=== PATIENT | female | born 1935 | race Caucasian/White ===

== ENCOUNTER 2016-11-04 17:39 | Emergency (ER) | payer MEDICARE ==
[~2016-11-04] VITALS: Ht 165.1 cm; Wt 54.0 kg
--- NOTE | 2016-11-04 17:50 | NUR ---
BIB RA FROM HOME FOR HEADACHE, PATIENT IS VERBALLY RESPONSIVE, A/O X4, PLACED ON MONITOR, WILL CONTINUE TO MONITOR CLOSELY, MD AT BEDSIDE.
[2016-11-04] MEDS ORDERED: hydrALAZINE HCL IV 20 MG VIAL ONE ×2 (18:15→19:04)
[2016-11-04] MEDS ORDERED: ONDANSETRON HCL/PF 4 MG/2 ML VIAL ONE (18:16)
[2016-11-04] MEDS ORDERED: HYDROCODONE/APAP 5/325MG 1 EACH TABLET ONE (18:16)
[2016-11-04] MEDS ORDERED: HYDROCODONE/APAP 5/325MG 1 EACH TABLET PO ONE (18:30)
[2016-11-04] MEDS ORDERED: hydrALAZINE HCL IV 20 MG VIAL IV ONE ×2 (18:30→19:30)
[2016-11-04] MEDS ORDERED: ONDANSETRON 4 MG TAB.RAPDIS SL ONE (18:30)
[2016-11-04 18:34] LABS: BASOPHILS # (AUTO) 0.1 /CMM (0.0-0.2); BASOPHILS % (AUTO) 0.7 % (0.0-2.0); EOSINOPHILS # (AUTO) 0.1 /CMM (0.0-0.7); EOSINOPHILS % (AUTO) 1.9 % (0.0-6.0); HEMATOCRIT 41 % (33-45); HEMOGLOBIN 13.8 g/dL (11.5-14.8); LYMPHOCYTES # (AUTO) 1.9 /CMM (0.8-4.8); LYMPHOCYTES % (AUTO) 26.6 % (20.0-44.0); MEAN CORPUSCULAR HEMOGLOBIN 32 PG (26.0-33.0); MEAN CORPUSCULAR HGB CONC 33 g/dl (31.0-36.0); MEAN CORPUSCULAR VOLUME 96 fL (82-100); MONOCYTES # (AUTO) 0.5 /CMM (0.1-1.30); MONOCYTES % (AUTO) 7.3 % (2.0-12.0); NEUTROPHILS # (AUTO) 4.6 /CMM (1.8-8.9); NEUTROPHILS % (AUTO) 63.5 % (43.0-81.0); PLATELET COUNT (AUTO) 234 /CMM (150-450); RDW COEFFICIENT OF VARIATION 11.9 (11.5-15.0); WHITE BLOOD COUNT (AUTO) 7.2 K/uL (4.3-11.0)
[2016-11-04 18:44] LABS: CALCIUM, SERUM 9.4 mg/dL (8.5-10.1); CARBON DIOXIDE 29 mmol/L (21-32); CHLORIDE 99 mmol/L (98-107); CREATININE 0.9 mg/dL (0.6-1.3); GLUCOSE 117 mg/dL (74-106); POTASSIUM 3.9 mmol/L (3.5-5.1); SODIUM SERUM 137 mmol/L (136-145); UREA NITROGEN, BLOOD 21 mg/dL (7-18)
[2016-11-04 18:52] LABS: ALANINE AMINOTRANSFERASE 19 U/L (12-78); ALKALINE PHOSPHATASE 90 U/L (46-116); ASPARTATE AMINOTRANSFERASE 16 U/L (15-37); BILIRUBIN,TOTAL 0.4 mg/dL (0.2-1.0); TOTAL PROTEIN, SERUM 7.7 g/dL (6.4-8.2)
--- NOTE | 2016-11-04 18:57 | NUR ---
RECEIVED REPORT FROM LAKEISHA HWANG FOR ANGELIC.
[2016-11-04] MEDS ORDERED: LORAZEPAM INJ 2 MG/ML VIAL ONE (19:03)
[2016-11-04] MEDS ORDERED: ONDANSETRON HCL/PF - ER 4 MG/2 ML VIAL IV ONE (19:30)
[2016-11-04] MEDS ORDERED: LORAZEPAM INJ 2 MG/ML VIAL IV ONE (19:30)
--- NOTE | 2016-11-04 19:34 | NUR ---
GRAND JUAN A ROWLEY CELL [phone]
--- NOTE | 2016-11-04 19:41 | NUR ---
DR. VELASCO AT BEDSIDE SPEAKIN TO PT REGARDING POC/ RESULTS.
--- NOTE | 2016-11-04 19:56 | NUR ---
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
--- NOTE | 2016-11-04 20:30 | NUR ---
Edvin grandson at bed side.
[2016-11-04 20:55] VITALS: BP 148/72
--- NOTE | 2016-11-04 20:55 | NUR ---
Patient discharged to home in stable condition. Written and verbal after care instructions given. Patient verbalizes understanding of instruction.IV removed. Catheter intact and site benign. Pressure and 4x4 applied to site. No bleeding noted. pt ambulatory with a steady gait VITAL SIGNS WITHIN NORMAL LIMITS.
== END 2016-11-04 20:58 | disposition home or self-care (01) ==
LOC: ER 17:42
DX: R51 Headache (principal); I10 Essential (primary) hypertension; F41.9 Anxiety disorder, unspecified; F17.200 Nicotine dependence, unspecified, uncomplicated; E03.9 Hypothyroidism, unspecified; Z88.6 Allergy status to analgesic agent; Z88.8 Allergy status to other drugs, medicaments and biological substances
CPT/HCPCS: 36415; 70450-TC; 80053-TC; 85025-TC; 85652-TC; A4606; J0360; J2060; J2405; Z7610

== ENCOUNTER 2016-11-05 22:24 | Emergency (ER) | payer MEDICARE ==
[~2016-11-05] VITALS: Ht 167.6 cm; Wt 55.3 kg
--- NOTE | 2016-11-05 22:29 | NUR ---
PT A/OX4 BREATHING EFFORTLESSLY ON ROOM AIR, PT STATES SHE HAS BEEN HVAING A HEADACHE X 5 DAYS AND WAS HERE YESTERDAY AND IT IS WORST TODAY, PT IN GOWN ON MONITOR, MADE AWARE WILL CONTINUE TO MONITOR.
[2016-11-06 00:31] LABS: TROPONIN I 0.018 ng/mL (0.00-0.056)
[2016-11-06 00:36] LABS: THYROID STIMULATING HORMONE 1.179 uIU/mL (0.358-3.74)
--- NOTE | 2016-11-06 01:05 | NUR ---
Patient discharged to home in stable condition. Written and verbal after care instructions given. Patient verbalizes understanding of instruction. Ambulatory with a steady gait.
[2016-11-06 01:06] VITALS: BP 134/74
== END 2016-11-06 01:08 | disposition home or self-care (01) ==
LOC: ER 22:26
DX: R51 Headache (principal); F41.9 Anxiety disorder, unspecified; E03.9 Hypothyroidism, unspecified; F17.200 Nicotine dependence, unspecified, uncomplicated; Z88.6 Allergy status to analgesic agent
CPT/HCPCS: 36415; 84439-TC; 84443-TC; 84484-TC; A4606; Z7610

== ENCOUNTER 2024-01-07 08:41 | Inpatient (IN) | payer MEDICARE ==
[~2024-01-07] VITALS: Ht 162.6 cm; Wt 50.1 kg
[2024-01-07 09:25] LABS: BASOPHILS # (AUTO) 0.1 K/uL (0.0-0.2); BASOPHILS % (AUTO) 0.6 % (0.0-2.0); EOSINOPHILS % (AUTO) 0.5 % (0.0-6.0); HEMATOCRIT 42 % (33-45); LYMPHOCYTES # (AUTO) 1.3 K/uL (0.8-4.8); LYMPHOCYTES % (AUTO) 14.1 % (20.0-44.0); MEAN CORPUSCULAR HEMOGLOBIN 32 PG (26.0-33.0); MEAN CORPUSCULAR HGB CONC 33 g/dl (31.0-36.0); MEAN CORPUSCULAR VOLUME 96 fL (82-100); MONOCYTES # (AUTO) 0.7 K/uL (0.1-1.30); MONOCYTES % (AUTO) 7.7 % (2.0-12.0); NEUTROPHILS # (AUTO) 7.3 K/uL (1.8-8.9); NEUTROPHILS % (AUTO) 77.1 % (43.0-81.0); PLATELET COUNT (AUTO) 279 K/uL (150-450); RED BLOOD CELL COUNT(AUTO) 4.41 MIL/uL (4.0-5.2); RED CELL DISTRIBUTION WIDTH 13.1 % (11.5-15.0); WHITE BLOOD COUNT (AUTO) 9.4 K/uL (4.3-11.0)
[2024-01-07 09:47] LABS: CALCIUM, SERUM 9.1 mg/dL (8.5-10.1); CARBON DIOXIDE 26 mmol/L (21-32); CHLORIDE 98 mmol/L (98-107); CREATININE 0.6 mg/dL (0.6-1.3); GLUCOSE 111 mg/dL (74-106); POTASSIUM 4.2 mmol/L (3.5-5.1); SODIUM SERUM 132 mmol/L (136-145); UREA NITROGEN, BLOOD 13 mg/dL (7-18)
[2024-01-07 09:54] LABS: ALANINE AMINOTRANSFERASE 18 U/L (12-78); ALBUMIN 3.5 g/dL (3.4-5.0); ALKALINE PHOSPHATASE 79 U/L (46-116); ASPARTATE AMINOTRANSFERASE 20 U/L (15-37); BILIRUBIN,DIRECT 0.1 mg/dL (0.0-0.2); BILIRUBIN,TOTAL 0.8 mg/dL (0.2-1.0); TOTAL PROTEIN, SERUM 7.9 g/dL (6.4-8.2)
[2024-01-07 09:55] LABS: LACTIC ACID 1.3 mmol/L (0.4-2.0)
[2024-01-07] MEDS ORDERED: AMLO2.5T4 PO (10:12)
[2024-01-07] MEDS ORDERED: ASPI-1169 PO (10:12)
[2024-01-07] MEDS ORDERED: LEVO88TA5 PO (10:12)
[2024-01-07] MEDS: IV NS 0.9% 1,000 ML BAG IV ONE (11:10)
[2024-01-07] MEDS: LEVOFLOXACIN 750 MG /D5W 150ML 150 ML IV ONE (11:11)
[2024-01-07] MEDS: IV NS 0.9% 1,000 ML IV PRN (16:59)
[2024-01-07] MEDS ORDERED: ONDANSETRON HCL/PF 4 MG/2 ML VIAL IVP PRN (17:00)
[2024-01-07] MEDS ORDERED: Z GUARD REMEDY 4 OZ OINT TP PRN (17:00)
[2024-01-07] MEDS ORDERED: LEVOFLOXACIN 500 MG /D5W 100ML 500 MG in PREMIX 1 EA IV SCH (17:00)
[2024-01-07 20:00] VITALS: BP 153/100; TEMP 99; O2SAT 96
[2024-01-07] MEDS: ENOXAPARIN SODIUM 30 MG/0.3 ML DISP.SYRIN SQ SCH (21:46)
[2024-01-08 06:35] LABS: BASOPHILS # (AUTO) 0.1 K/uL (0.0-0.2); BASOPHILS % (AUTO) 1.4 % (0.0-2.0); EOSINOPHILS % (AUTO) 0.4 % (0.0-6.0); HEMATOCRIT 38 % (33-45); LYMPHOCYTES # (AUTO) 1.6 K/uL (0.8-4.8); LYMPHOCYTES % (AUTO) 22.6 % (20.0-44.0); MEAN CORPUSCULAR HEMOGLOBIN 33 PG (26.0-33.0); MEAN CORPUSCULAR HGB CONC 34 g/dl (31.0-36.0); MEAN CORPUSCULAR VOLUME 96 fL (82-100); MONOCYTES # (AUTO) 0.5 K/uL (0.1-1.30); MONOCYTES % (AUTO) 7.6 % (2.0-12.0); NEUTROPHILS # (AUTO) 4.7 K/uL (1.8-8.9); PLATELET COUNT (AUTO) 271 K/uL (150-450); RED BLOOD CELL COUNT(AUTO) 3.97 MIL/uL (4.0-5.2); RED CELL DISTRIBUTION WIDTH 12.9 % (11.5-15.0); WHITE BLOOD COUNT (AUTO) 6.9 K/uL (4.3-11.0)
[2024-01-08 07:03] LABS: CALCIUM, SERUM 8.9 mg/dL (8.5-10.1); CARBON DIOXIDE 31 mmol/L (21-32); CHLORIDE 99 mmol/L (98-107); CREATININE 0.5 mg/dL (0.6-1.3); GLUCOSE 102 mg/dL (74-106); MAGNESIUM 2.3 mg/dL (1.8-2.4); PHOSPHORUS 2.6 mg/dL (2.5-4.9); POTASSIUM 4.3 mmol/L (3.5-5.1); SODIUM SERUM 136 mmol/L (136-145); UREA NITROGEN, BLOOD 12 mg/dL (7-18)
[2024-01-08] MEDS: PANTOPRAZOLE 40 MG TABLET.DR PO SCH (07:38)
[2024-01-08] MEDS: LEVOTHYROXINE SODIUM 88 MCG TABLET PO SCH (07:39)
[2024-01-08 07:56] LABS: CHOLESTEROL 178 mg/dL (<200); HDL CHOLESTEROL 59 mg/dL (40-60); LDL 99 mg/dL (0-99); TRIGLYCERIDES 99 mg/dL (30-150)
[2024-01-08 08:00] VITALS: BP 132/100; TEMP 98.4; O2SAT 96
[2024-01-08] MEDS: ASPIRIN 81 MG TAB.CHEW PO SCH (08:26)
[2024-01-08] MEDS: AMLODIPINE BESYLATE 2.5 MG TABLET PO SCH (08:27)
[2024-01-08] MEDS: ATORVASTATIN 10 MG TABLET PO SCH (12:35)
[2024-01-08 16:00] VITALS: BP 144/68; TEMP 99.9; O2SAT 94
[2024-01-08 19:12] LABS: THYROID STIMULATING HORMONE 0.06 uIU/mL (0.358-3.74)
[2024-01-08 20:36] VITALS: BP 128/78; TEMP 100.8; O2SAT 96
[2024-01-08] MEDS: ACETAMINOPHEN 325 MG TABLET PO PRN (20:48)
[2024-01-08 20:51] VITALS: O2SAT 96
[2024-01-09 08:00] VITALS: BP 126/81; TEMP 99.1; O2SAT 97
[2024-01-09] MEDS: LEVOFLOXACIN 750 MG /D5W 150ML 750 MG in PREMIX 1 EA IV SCH (09:06)
[2024-01-09] MEDS: AZITHROMYCIN 250 MG TABLET PO SCH (11:37)
[2024-01-09] MEDS: CEFTRIAXONE 2 G in IV D5W 100 ML IV ONE (11:50)
[2024-01-09] MEDS ORDERED: CEFTRIAXONE 1GM BAG (ER ONLY) 1 GM/50 ML PIGGYBACK IV ONE (12:00)
[2024-01-09] MEDS: ENSURE ENLIVE 237 ML LIQUID (VANILLA) PO SCH (12:12)
[2024-01-09] MEDS: MAG HYDROX/AL HYDROX/SIMETH 30 ML UDC PO PRN (15:36)
[2024-01-09 16:00] VITALS: BP 143/83; TEMP 100.8; O2SAT 92
[2024-01-09 20:00] VITALS: BP 140/74; TEMP 97.5; O2SAT 94
[2024-01-09 20:20] VITALS: BP 140/74; TEMP 97.5; O2SAT 94
[2024-01-10 06:12] LABS: FOLIC ACID > 20.0 ng/mL (>3.0)
[2024-01-10 08:00] VITALS: BP 149/89; TEMP 98.4; O2SAT 100
[2024-01-10] MEDS: LEVOTHYROXINE SODIUM 88 MCG TABLET PO SCH (08:21)
[2024-01-10] MEDS: ENSURE ENLIVE CHOC 237 ML CAN PO SCH (11:51)
[2024-01-10] MEDS: CEFTRIAXONE 2 G in IV D5W 100 ML IV SCH (14:02)
[2024-01-10 16:00] VITALS: BP 156/92; TEMP 100.2; O2SAT 92
[2024-01-10 20:44] VITALS: BP 162/76; TEMP 99.3; O2SAT 92
[2024-01-10 22:30] VITALS: BP 150/85; O2SAT 96
[2024-01-11 08:00] VITALS: BP 140/76; TEMP 97.7; O2SAT 94
[2024-01-11 16:00] VITALS: BP 140/75; TEMP 99.3; O2SAT 93
[2024-01-11 20:00] VITALS: BP 150/75; TEMP 97.5; O2SAT 94
[2024-01-12 07:00] VITALS: BP 124/106; TEMP 97.5; O2SAT 96
[2024-01-12 08:45] VITALS: O2SAT 97
[2024-01-12 16:00] VITALS: BP 140/75; TEMP 97.3; O2SAT 97
[2024-01-12 20:00] VITALS: BP_SYST 131; BP_SYST 151; BP_DIAS 76; BP_DIAS 90; TEMP 97.3; TEMP 97.5; O2SAT 94; O2SAT 95
[2024-01-12 23:22] VITALS: BP 151/90; TEMP 97.3; O2SAT 95
[2024-01-13 08:00] VITALS: BP 145/84; TEMP 98.6; O2SAT 96
[2024-01-13 16:00] VITALS: BP 135/71; TEMP 99; O2SAT 95
[2024-01-13 20:41] VITALS: BP 145/81; TEMP 97.7; O2SAT 92
[2024-01-14 02:04] VITALS: BP 145/81; TEMP 97.7; O2SAT 92
[2024-01-14] MEDS ORDERED: TRAMADOL HCL 50 MG TABLET PO PRN (03:00)
[2024-01-14] MEDS: HYDROCODONE/APAP 5/325MG TABLET PO PRN (03:25)
[2024-01-14] MEDS: MORPHINE SULFATE INJ 2 MG/ML DISP.SYRIN IV PRN (06:22)
[2024-01-14 08:00] VITALS: BP 146/80; TEMP 99; O2SAT 94
[2024-01-14] MEDS: MAGNESIUM HYDROXIDE 30 ML UDC PO PRN (08:42)
[2024-01-14 09:08] LABS: METHYLMALONIC ACID 120 nmol/L (0-378)
[2024-01-14 10:24] LABS: BASOPHILS # (AUTO) 0.1 K/uL (0.0-0.2); BASOPHILS % (AUTO) 1.4 % (0.0-2.0); EOSINOPHILS % (AUTO) 0.1 % (0.0-6.0); HEMATOCRIT 45 % (33-45); HEMOGLOBIN 15.1 g/dL (11.5-14.8); LYMPHOCYTES # (AUTO) 0.2 K/uL (0.8-4.8); LYMPHOCYTES % (AUTO) 1.8 % (20.0-44.0); MEAN CORPUSCULAR HEMOGLOBIN 32 PG (26.0-33.0); MEAN CORPUSCULAR HGB CONC 33 g/dl (31.0-36.0); MEAN CORPUSCULAR VOLUME 96 fL (82-100); MONOCYTES # (AUTO) 0.3 K/uL (0.1-1.30); MONOCYTES % (AUTO) 3.1 % (2.0-12.0); NEUTROPHILS # (AUTO) 10.1 K/uL (1.8-8.9); NEUTROPHILS % (AUTO) 93.6 % (43.0-81.0); PLATELET COUNT (AUTO) 483 K/uL (150-450); RED BLOOD CELL COUNT(AUTO) 4.71 MIL/uL (4.0-5.2); RED CELL DISTRIBUTION WIDTH 13.1 % (11.5-15.0); WHITE BLOOD COUNT (AUTO) 10.8 K/uL (4.3-11.0)
[2024-01-14 10:42] LABS: ALANINE AMINOTRANSFERASE 29 U/L (12-78); ALBUMIN 2.9 g/dL (3.4-5.0); ALKALINE PHOSPHATASE 67 U/L (46-116); ASPARTATE AMINOTRANSFERASE 24 U/L (15-37); BILIRUBIN,TOTAL 0.9 mg/dL (0.2-1.0); CALCIUM, SERUM 8.8 mg/dL (8.5-10.1); CARBON DIOXIDE 27 mmol/L (21-32); CHLORIDE 97 mmol/L (98-107); CREATININE 0.6 mg/dL (0.6-1.3); GLUCOSE 117 mg/dL (74-106); LACTIC ACID 1.5 mmol/L (0.4-2.0); MAGNESIUM 2.3 mg/dL (1.8-2.4); PHOSPHORUS 3.9 mg/dL (2.5-4.9); POTASSIUM 3.8 mmol/L (3.5-5.1); SODIUM SERUM 134 mmol/L (136-145); TOTAL PROTEIN, SERUM 6.4 g/dL (6.4-8.2); UREA NITROGEN, BLOOD 33 mg/dL (7-18)
[2024-01-14 11:06] LABS: ANISOCYTOSIS 1+; BAND % (MANUAL) 3 % (0.0-5.0); BASOPHILS % (MANUAL) 0 % (0.0-2.0); EOSINOPHILS % (MANUAL) 0 % (0-4); LYMPHOCYTES % (MANUAL) 3 % (16-48); MONOCYTES % (MANUAL) 5 % (0-11.0); NEUTROPHILS % (MANUAL) 89 (42-76); PLATELET ESTIMATE ADEQUATE
[2024-01-14 16:00] VITALS: BP 143/91; TEMP 99.1; O2SAT 99
[2024-01-14 20:00] VITALS: BP 129/87; TEMP 98.1; O2SAT 92
[2024-01-15 08:00] VITALS: BP 148/85; TEMP 98.1; O2SAT 94
[2024-01-15 16:09] VITALS: BP 137/76; TEMP 98.1; O2SAT 92
[2024-01-15 20:00] VITALS: BP 142/80; TEMP 98.6; O2SAT 92
[2024-01-16 07:30] VITALS: BP 153/82; TEMP 97.9; O2SAT 94
[2024-01-16 16:00] VITALS: BP 136/78; TEMP 98.3; O2SAT 96
[2024-01-16 20:00] VITALS: BP 147/68; TEMP 98.2; O2SAT 94
[2024-01-17 06:33] LABS: BASOPHILS # (AUTO) 0.1 K/uL (0.0-0.2); BASOPHILS % (AUTO) 0.9 % (0.0-2.0); HEMATOCRIT 38 % (33-45); HEMOGLOBIN 12.9 g/dL (11.5-14.8); LYMPHOCYTES # (AUTO) 0.7 K/uL (0.8-4.8); LYMPHOCYTES % (AUTO) 5.5 % (20.0-44.0); MEAN CORPUSCULAR HEMOGLOBIN 33 PG (26.0-33.0); MEAN CORPUSCULAR HGB CONC 34 g/dl (31.0-36.0); MEAN CORPUSCULAR VOLUME 97 fL (82-100); MONOCYTES # (AUTO) 0.8 K/uL (0.1-1.30); MONOCYTES % (AUTO) 6.5 % (2.0-12.0); NEUTROPHILS # (AUTO) 10.6 K/uL (1.8-8.9); NEUTROPHILS % (AUTO) 87.1 % (43.0-81.0); PLATELET COUNT (AUTO) 469 K/uL (150-450); RED BLOOD CELL COUNT(AUTO) 3.94 MIL/uL (4.0-5.2); RED CELL DISTRIBUTION WIDTH 12.9 % (11.5-15.0); WHITE BLOOD COUNT (AUTO) 12.1 K/uL (4.3-11.0)
[2024-01-17 06:54] LABS: ALANINE AMINOTRANSFERASE 19 U/L (12-78); ALBUMIN 2.5 g/dL (3.4-5.0); ALKALINE PHOSPHATASE 66 U/L (46-116); ASPARTATE AMINOTRANSFERASE 18 U/L (15-37); BILIRUBIN,TOTAL 0.6 mg/dL (0.2-1.0); CALCIUM, SERUM 8.7 mg/dL (8.5-10.1); CARBON DIOXIDE 35 mmol/L (21-32); CHLORIDE 101 mmol/L (98-107); CREATININE 0.5 mg/dL (0.6-1.3); GLUCOSE 100 mg/dL (74-106); MAGNESIUM 2.6 mg/dL (1.8-2.4); PHOSPHORUS 2.4 mg/dL (2.5-4.9); POTASSIUM 3.5 mmol/L (3.5-5.1); SODIUM SERUM 142 mmol/L (136-145); TOTAL PROTEIN, SERUM 6.3 g/dL (6.4-8.2); UREA NITROGEN, BLOOD 27 mg/dL (7-18)
[2024-01-17 08:00] VITALS: BP 145/78; TEMP 98.8; O2SAT 96
[2024-01-17] MEDS ORDERED: DIATR MEGLU/DIATRIZOATE SODIUM 120 ML BOTTLE (GASTROGRAPHIN) ONE ×2 (09:21→09:23)
[2024-01-17 09:42] LABS: ERYTHROCYTE SEDIMENTATION RATE 62 MM/HR (0-30)
[2024-01-17 13:57] LABS: INR 1.04 (0.91-1.10)
[2024-01-17] MEDS: K PHOS NEUTRAL 250 MG TABLET PO ONE (15:53)
[2024-01-17 17:52] LABS: APPEARANCE,SPUN,BODY FLUID CLEAR (CLEAR); TOTAL VOLUME,BODY FLUID 300 mL
[2024-01-17 17:53] LABS: WBC, BODY FLUID 575 /cu. mm. (0-200)
[2024-01-17 18:16] LABS: MACROPHAGES, BODY FLUID 6; MONOCYTES,BODY FLUID 0 %; POLYNUCLEAR, BODY FLUID 71 % (0-25)
[2024-01-17 20:14] VITALS: BP 121/74; TEMP 98; O2SAT 92
[2024-01-17] MEDS ORDERED: IV NS 0.9% 1,000 ML BAG IV PRN (20:30)
[2024-01-17] MEDS: IV NS 0.9% 1,000 ML IV PRN (21:11)
[2024-01-18 07:00] VITALS: BP 150/68; TEMP 97.3; O2SAT 100
[2024-01-18 10:19] LABS: CARBON DIOXIDE 31 mmol/L (21-32); CHLORIDE 108 mmol/L (98-107); CREATININE 0.4 mg/dL (0.6-1.3); GLUCOSE 113 mg/dL (74-106); MAGNESIUM 2.4 mg/dL (1.8-2.4); PHOSPHORUS 2.7 mg/dL (2.5-4.9); POTASSIUM 3.7 mmol/L (3.5-5.1); SODIUM SERUM 146 mmol/L (136-145); UREA NITROGEN, BLOOD 25 mg/dL (7-18)
[2024-01-18 11:47] LABS: BASOPHILS % (AUTO) 0.2 % (0.0-2.0); EOSINOPHILS % (AUTO) 0.2 % (0.0-6.0); HEMATOCRIT 39 % (33-45); HEMOGLOBIN 12.7 g/dL (11.5-14.8); LYMPHOCYTES # (AUTO) 0.9 K/uL (0.8-4.8); LYMPHOCYTES % (AUTO) 9.5 % (20.0-44.0); MEAN CORPUSCULAR HEMOGLOBIN 32 PG (26.0-33.0); MEAN CORPUSCULAR HGB CONC 33 g/dl (31.0-36.0); MEAN CORPUSCULAR VOLUME 98 fL (82-100); MONOCYTES # (AUTO) 0.8 K/uL (0.1-1.30); MONOCYTES % (AUTO) 9.3 % (2.0-12.0); NEUTROPHILS # (AUTO) 7.3 K/uL (1.8-8.9); NEUTROPHILS % (AUTO) 80.8 % (43.0-81.0); PLATELET COUNT (AUTO) 454 K/uL (150-450); RED BLOOD CELL COUNT(AUTO) 3.94 MIL/uL (4.0-5.2); RED CELL DISTRIBUTION WIDTH 13.4 % (11.5-15.0); WHITE BLOOD COUNT (AUTO) 9.1 K/uL (4.3-11.0)
[2024-01-18] MEDS: LACTULOSE 10 G/15 ML UDC (PYXIS) PO ONE (13:24)
[2024-01-18] MEDS: SORBITOL SOLUTION 70% 30 ML SOLUTION PO ONE (13:24)
[2024-01-18 16:00] VITALS: BP 142/94; TEMP 97.5; O2SAT 94
[2024-01-18 20:00] VITALS: BP 155/73; TEMP 97.9; O2SAT 94
[2024-01-19 06:24] LABS: BASOPHILS % (AUTO) 0.3 % (0.0-2.0); EOSINOPHILS # (AUTO) 0.1 K/uL (0.0-0.7); EOSINOPHILS % (AUTO) 0.7 % (0.0-6.0); HEMATOCRIT 39 % (33-45); HEMOGLOBIN 12.6 g/dL (11.5-14.8); LYMPHOCYTES # (AUTO) 0.9 K/uL (0.8-4.8); MEAN CORPUSCULAR HEMOGLOBIN 32 PG (26.0-33.0); MEAN CORPUSCULAR HGB CONC 33 g/dl (31.0-36.0); MEAN CORPUSCULAR VOLUME 99 fL (82-100); MONOCYTES # (AUTO) 0.8 K/uL (0.1-1.30); MONOCYTES % (AUTO) 8.5 % (2.0-12.0); NEUTROPHILS # (AUTO) 7.9 K/uL (1.8-8.9); NEUTROPHILS % (AUTO) 81.5 % (43.0-81.0); PLATELET COUNT (AUTO) 447 K/uL (150-450); RED CELL DISTRIBUTION WIDTH 13.3 % (11.5-15.0); WHITE BLOOD COUNT (AUTO) 9.7 K/uL (4.3-11.0)
[2024-01-19 06:46] LABS: CALCIUM, SERUM 8.6 mg/dL (8.5-10.1); CARBON DIOXIDE 31 mmol/L (21-32); CHLORIDE 106 mmol/L (98-107); CREATININE 0.3 mg/dL (0.6-1.3); GLUCOSE 98 mg/dL (74-106); MAGNESIUM 2.5 mg/dL (1.8-2.4); PHOSPHORUS 2.6 mg/dL (2.5-4.9); POTASSIUM 3.6 mmol/L (3.5-5.1); SODIUM SERUM 144 mmol/L (136-145); UREA NITROGEN, BLOOD 15 mg/dL (7-18)
[2024-01-19 08:00] VITALS: BP 157/94; TEMP 98.1; O2SAT 99
[2024-01-19] MEDS ORDERED: ENSURE ENLIVE CHOC 237 ML CAN PO SCH (08:30)
[2024-01-19 16:00] VITALS: BP 147/91; TEMP 97.9; O2SAT 94
[2024-01-19 20:00] VITALS: BP 159/86; TEMP 98.8; O2SAT 97
[2024-01-20 08:00] VITALS: BP 148/89; TEMP 97.9; O2SAT 87
[2024-01-20 16:00] VITALS: BP 132/70; TEMP 99.3; O2SAT 94
[2024-01-20 16:48] LABS: CALCIUM, SERUM 8.4 mg/dL (8.5-10.1); CARBON DIOXIDE 32 mmol/L (21-32); CHLORIDE 101 mmol/L (98-107); CREATININE 0.4 mg/dL (0.6-1.3); GLUCOSE 86 mg/dL (74-106); POTASSIUM 3.4 mmol/L (3.5-5.1); SODIUM SERUM 141 mmol/L (136-145); UREA NITROGEN, BLOOD 13 mg/dL (7-18)
[2024-01-20 20:00] VITALS: BP 143/86; TEMP 98.1; O2SAT 98
[2024-01-21 08:00] VITALS: BP 138/61; TEMP 98.2; O2SAT 97
[2024-01-21] MEDS ORDERED: LACT-54 PO (13:08)
[2024-01-21] MEDS ORDERED: LEVO88TA2 PO (13:08)
[2024-01-21] MEDS ORDERED: ATOR10TA PO (13:08)
[2024-01-21 20:20] VITALS: O2SAT 97
[2024-01-22 10:53] VITALS: BP 137/76; TEMP 97.7; O2SAT 95
== END 2024-01-22 15:36 | DRG 193 ==
LOC: ER 08:41 → MED 13:31
PROVIDERS: ADMIT Nurse Practitioner Acute Care; ATTEND Nurse Practitioner Acute Care
PROC: 0W993ZZ Drainage of Right Pleural Cavity, Percutaneous Approach (ICD-10-PCS; principal; 2024-01-17)
DX: J15.9 Unspecified bacterial pneumonia (principal); E43 Unspecified severe protein-calorie malnutrition; E87.1 Hypo-osmolality and hyponatremia; R64 Cachexia; D68.59 Other primary thrombophilia; Z68.1 Body mass index [BMI] 19.9 or less, adult; J93.83 Other pneumothorax; E03.9 Hypothyroidism, unspecified; Z20.822 Contact with and (suspected) exposure to COVID-19; Z74.09 Other reduced mobility; E78.5 Hyperlipidemia, unspecified; F41.9 Anxiety disorder, unspecified; Z88.0 Allergy status to penicillin; Z88.6 Allergy status to analgesic agent; Z79.82 Long term (current) use of aspirin; Z79.890 Hormone replacement therapy; Z79.899 Other long term (current) drug therapy; D32.0 Benign neoplasm of cerebral meninges; R91.1 Solitary pulmonary nodule; Z86.73 Personal history of transient ischemic attack (TIA), and cerebral infarction without residual deficits; I25.10 Atherosclerotic heart disease of native coronary artery without angina pectoris; Z95.5 Presence of coronary angioplasty implant and graft; F09 Unspecified mental disorder due to known physiological condition; Z91.199 Patient's noncompliance with other medical treatment and regimen due to unspecified reason; I10 Essential (primary) hypertension; F17.210 Nicotine dependence, cigarettes, uncomplicated; Z88.9 Allergy status to unspecified drugs, medicaments and biological substances; L40.9 Psoriasis, unspecified; Z86.69 Personal history of other diseases of the nervous system and sense organs; Z86.39 Personal history of other endocrine, nutritional and metabolic disease
CPT/HCPCS: 36415; 70450-TC; 70496-TC; 71045-TC; 71046; 71250-TC; 73030-TC; 74018; 80048-TC; 80053-TC; 80061-TC; 80076-TC; 82150-TC; 82607-TC; 82962-TC; 83605-TC; 83615-TC; 83690-TC; 83735-TC; 83921; 84100-TC; 84425; 84439-TC; 84443-TC; 84481; 84484-TC; 85025-TC; 85610-TC; 85652-TC; 86480; 87040-TC; 87102-TC; 87206-TC; 89051-TC; 92526; 92611-TC; 94640-TC; 94799-TC; 97110-TC; 97112-TC; 97116-TC; 97530-TC; A4216; A4223; G0378; J0696; J1650; J1956; J2270; J7030; J7060; Q9963